=== PATIENT | female | born 2000 | race Caucasian/White ===

== ENCOUNTER 2022-09-09 20:15 | Emergency (ER) | payer SELFPAY ==
[2022-09-09 20:23] VITALS: BP 124/89; PULSE 91; RESP 18; TEMP 36.2; O2SAT 97; BMI 24.2
--- NOTE | 2022-09-09 20:29 | CRLHL7_ITS ---
For Patients: As a result of the Century Cures Act, medical imaging exams and procedure reports are released immediately into your electronic medical record. You may view this report before your referring provider. If you have questions, please contact your health care provider. Indication: Trauma to top of foot Technique: Two views of the right foot, nonweightbearing Comparison: Right foot radiograph on November 24, 2021 Findings and Impression: No acute fracture. Normal alignment on nonweightbearing view. No soft tissue swelling or radiopaque foreign body. Dictated by Parminder Willson MD @ 09/09/2022 9:26:36 PM (Electronically Signed)
--- NOTE | 2022-09-09 20:51 | ED.GENADULT ---
HPI - General Adult General Chief complaint: Extremity Pain/Injury, Lower Stated complaint: Right foot injury Time Seen by Provider: 09/09/22 20:29 Source: patient Mode of arrival: ambulatory Limitations: no limitations History of Present Illness HPI narrative: 22-year-old female coming in today complaining of foot pain. 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 She is complaining of pain at the base of the big toe on the dorsal surface of the foot. He has been walking over the last 4 days however it is uncomfortable for her. Related Data Allergies Allergy/AdvReac Type Severity Reaction Status Date / Time No Known Drug Allergies Allergy Verified 09/09/22 20:28 Review of Systems Status of ROS: Reports: 10 or more systems reviewed and unremarkable except as noted in History and below Exam Narrative: Exam Narrative: Well-nourished well-developed patient in no acute distress. Alert and oriented. Answers questions appropriately. Mood and affect are appropriate. Thoughts are goal oriented and rational. No tangential or magical thinking noted. Patient speaks in full sentences without needing to catch their breath. HEENT: Normocephalic atraumatic. Pupils are equally round reactive to light. Extraocular muscles are intact. Conjunctivae are moist without any icterus noted. Extremities: Bilateral lower extremities are without edema. Normal DP and PT pulses. Patient has small area of ecchymosis to the toe on the dorsal surface right where it hurts. She has tenderness in that area. Remainder of the foot is entirely normal. Skin: Well perfused. Const: Vital Signs, click to edit/add: Vital Signs - 24 hr 09/09/22 20:23 Temperature 97.2 F L Pulse Rate [Left P ulse Oximeter] 91 Respiratory Rate 18 Blood Pressure [Ri ght Upper Arm] 124/89 Pulse Oximetry 97 Oxygen Delivery Me thod Room Air Course Course Hospital Course: X-ray of the foot was done, read by me, does not show any acute fractures. Vital Signs Vital signs: Initial Vital Signs Temperature 97.2 F L 09/09/22 20:23 Temperature Source Temporal Artery Scan 09/09/22 20:23 Pulse Rate 91 09/09/22 20:23 Pulse Rhythm 09/09/22 20:23 Respiratory Rate 18 09/09/22 20:23 Blood Pressure 124/89 09/09/22 20:23 Blood Pressure Mean 100 09/09/22 20:23 Blood Pressure Position Sitting 09/09/22 20:23 Pulse Oximetry 97 09/09/22 20:23 Oxygen Delivery Method 09/09/22 20:23 Vital Signs Temperature 97.2 F L 09/09/22 20:23 Pulse Rate 91 09/09/22 20:23 Respiratory Rate 18 09/09/22 20:23 Blood Pressure 124/89 09/09/22 20:23 Pulse Oximetry 97 09/09/22 20:23 Oxygen Delivery Method 09/09/22 20:23 Temperature 97.2 F L 09/09/22 20:23 Pulse Rate 91 09/09/22 20:23 Respiratory Rate 18 09/09/22 20:23 Blood Pressure 124/89 09/09/22 20:23 Pulse Oximetry 97 09/09/22 20:23 Oxygen Delivery Method 09/09/22 20:23 Medical Decision Making MDM Narrative Medical decision making narrative: Contusion to right foot. We discussed symptomatic treatment and reasons to return for follow-up. Imaging Data X-ray right foot: Attestation: I have reviewed the pertinent imaging results. My impression: No acute findings Radiologist's impression: Pending at time of dictation. Discharge Plan Discharge Clinical Impression: Contusion of foot, right Patient Disposition: Home, Self-Care Condition: Stable Additional Instructions: Okay to use ibuprofen or Tylenol as needed for discomfort. Use a firm soled shoe for comfort. Follow Up/Referrals: Provider,Not a Local [Primary Care Provider] - Stand Alone Forms: [facility] Info Instructions
== END 2022-09-09 21:26 | disposition home or self-care (01) ==
PROVIDERS: Emergency Provider Family Medicine
DX: S90.31XA Contusion of right foot, initial encounter (principal); W50.0XXA Accidental hit or strike by another person, initial encounter; Y93.66 Activity, soccer
CPT/HCPCS: 73620; 99283; 99284

== ENCOUNTER 2023-01-11 14:43 | Emergency (ER) | payer OTHER, SELFPAY ==
[2023-01-11 14:48] VITALS: BP 128/89; PULSE 121; RESP 16; TEMP 36.6; O2SAT 99; BMI 27.4
--- NOTE | 2023-01-11 15:04 | CRLHL7_ITS ---
For Patients: As a result of the Cures Act, medical imaging exams and procedure reports are released immediately into your electronic medical record. You may view this report before your referring provider. If you have questions, please contact your health care provider. INDICATION: Lateral hand injury trying to open a beer bottle TECHNIQUE: Hand radiograph 3 views right COMPARISON: None FINDINGS: Bone: No acute fractures or aggressive bone lesions are identified. Joint: The carpal and metacarpal-phalangeal joints are unremarkable in appearance. The interphalangeal joints are normal in appearance. Soft tissue: Unremarkable. No radiopaque foreign bodies are seen. IMPRESSION: 1. No acute osseous injuries or abnormalities are noted. Dictated by: Reynaldo Lopez MD @ 01/11/2023 15:25:11 (Electronically Signed)
--- NOTE | 2023-01-11 15:27 | ED_ITS ---
HPI - General Adult General Date Seen: 01/11/23 Chief complaint: Extremity Pain/Injury, Upper Stated complaint: Hand Injury Time Seen by Provider: 01/11/23 14:52 Source: patient Mode of arrival: ambulatory Limitations: no limitations History of Present Illness HPI narrative: Patient is a 22-year-old young woman who yesterday was trying to open a beer bottle by hitting the edge of the cap on a table. She used the lateral side of her hand to pound on the top of the bottle as it was being stubborn. She has since developed pain and swelling over the 5th metacarpal area. Related Data Home Medications Medication Instructions Recorded Confirmed desloratadine 5 mg tablet 5 mg PO DAILY 01/11/23 01/11/23 ferrous sulfate 325 mg (65 mg 325 mg PO DAILY 01/11/23 01/11/23 iron) tablet (iron) Allergies Allergy/AdvReac Type Severity Reaction Status Date / Time No Known Drug Allergies Allergy Verified 01/11/23 14:55 Review of Systems Status of ROS: Reports: 6 or more systems reviewed and unremarkable except as noted in History and below Exam Narrative: Exam Narrative: Vital signs reviewed. In general, an alert, well-appearing young woman. Extremities: Examination of the right hand shows of focal area of swelling at about the mid 5th metacarpal. She has tenderness here. She does have some tenderness with axial loading of the 5th finger, minimal tenderness to palpation of the palmar surface of the hand. Remainder of the hand is atraumatic. Distal CMS normal. Skin: Warm dry well perfused. A little bit of bruising noted over the 5th metacarpal, otherwise no significant bruising, erythema, no abrasions or lacerations. Const: Vital Signs, click to edit/add: Vital Signs - 24 hr 01/11/23 14:48 Temperature 97.8 F Pulse Rate [Right Pulse Oximeter] 121 H Respiratory Rate 16 Blood Pressure [Le ft Upper Arm] 128/89 Pulse Oximetry 99 Oxygen Delivery Me thod Room Air Course Course Hospital Course: She is somewhat tachycardic on check-in, will recheck that. She does not have any symptoms pertaining to tachycardia however. X-rays of the right hand by my review are negative for any evidence of fracture. I think her symptoms are simply related to hematoma in that area. She can use ice, ibuprofen. Anticipate this will improve over the next several days to week. Vital Signs Vital signs: Initial Vital Signs Temperature 97.8 F 01/11/23 14:48 Temperature Source Temporal Artery Scan 01/11/23 14:48 Pulse Rate 121 H 01/11/23 14:48 Respiratory Rate 16 01/11/23 14:48 Blood Pressure 128/89 01/11/23 14:48 Blood Pressure Mean 102 01/11/23 14:48 Blood Pressure Position Sitting 01/11/23 14:48 Pulse Oximetry 99 01/11/23 14:48 Oxygen Delivery Method 01/11/23 14:48 Vital Signs Temperature 97.8 F 01/11/23 14:48 Pulse Rate 121 H 01/11/23 14:48 Respiratory Rate 16 01/11/23 14:48 Blood Pressure 128/89 01/11/23 14:48 Pulse Oximetry 99 01/11/23 14:48 Oxygen Delivery Method 01/11/23 14:48 Temperature 97.8 F 01/11/23 14:48 Pulse Rate 121 H 01/11/23 14:48 Respiratory Rate 16 01/11/23 14:48 Blood Pressure 128/89 01/11/23 14:48 Pulse Oximetry 99 01/11/23 14:48 Oxygen Delivery Method 01/11/23 14:48 Discharge Plan Discharge Clinical Impression: Traumatic hematoma of hand Patient Disposition: Home, Self-Care Condition: Stable Instructions: Contusion in Adults (ED) Additional Instructions: You can use ice on this area, ibuprofen or Tylenol as needed for pain. This will improve over the next several days to week, but it may take a couple of weeks for the bump to completely resolve. Your x-ray today is normal. Prescriptions: No Action desloratadine 5 mg tablet 5 mg PO DAILY ferrous sulfate [iron] 325 mg (65 mg iron) tablet 325 mg PO DAILY Follow Up/Referrals: Provider,Not a Local [Primary Care Provider] - Stand Alone Forms: [employer] Info Instructions
== END 2023-01-11 15:56 | disposition home or self-care (01) ==
PROVIDERS: Emergency Provider Emergency Medicine
DX: S60.221A Contusion of right hand, initial encounter (principal); W22.8XXA Striking against or struck by other objects, initial encounter
CPT/HCPCS: 73130; 99283

== ENCOUNTER 2023-02-13 10:48 | Emergency (ER) | payer OTHER, SELFPAY ==
[2023-02-13 10:55] VITALS: BP 118/80; PULSE 80; RESP 16; O2SAT 97; BMI 23.5
--- NOTE | 2023-02-13 11:49 | ED_ITS ---
HPI - General Adult General Chief complaint: Nausea/Vomiting Stated complaint: Vomiting, suspected alcohol poisoning Time Seen by Provider: 02/13/23 11:13 History of Present Illness HPI narrative: This 23-year-old female comes in reporting vomiting and generalized malaise with aches and pains. She states that she had some alcohol last night about 12 hours prior to arrival here was her last drink. She states she normally tolerates alcohol and did not report drinking any excessive amount. She woke up this morning in wanted to go to classes she is a student in college but began to feel these symptoms. Related Data Home Medications Medication Instructions Recorded Confirmed desloratadine 5 mg tablet 5 mg PO DAILY 01/11/23 01/11/23 ferrous sulfate 325 mg (65 mg 325 mg PO DAILY 01/11/23 01/11/23 iron) tablet (iron) Allergies Allergy/AdvReac Type Severity Reaction Status Date / Time No Known Drug Allergies Allergy Verified 02/13/23 11:01 Review of Systems Status of ROS: Reports: 10 or more systems reviewed and unremarkable except as noted in History and below Narrative: Constitutional: No fevers, no weight gain or loss. Eyes: No discharge. No vision changes. HENT: No congestion, no sore throat, no ear pain. Cardiovascular: No chest pain, no palpitations. Respiratory: No shortness of breath, no wheezes, no cough. Gastrointestinal: Nausea and vomiting. Genitourinary: No dysuria, no hematuria. Musculoskeletal: Normal range of motion. Skin: No rashes, no pruritis. Neurological: No dizziness, weakness, sensory change, speech change. She reports some myoclonic jerks. Endo/Heme/Allergies: No bruising or bleeding. No polydipsia. Pysch: no suicidality, no anxiety, no insomnia. All other systems reviewed and are negative. [facility] Social History service: No Exam Narrative: Exam Narrative: Constitutional: Well-developed, well-nourished. HEENT: Normocephalic, atraumatic. Neck: Normal range of motion. Nontender. Supple. Heart: Regular. No murmurs. Normal rate. Intact distal pulses. Lungs: Clear to auscultation. No chest discomfort. No wheezes, rhonchi, or rales. Abdomen: Normal bowel sounds. Nontender. No rebound tenderness. Genitalia: Deferred. Back: No midline tenderness. Normal range of motion. Extremities: Normal range of motion. No injury. Skin: Intact. No rash. Warm. No erythema or pallor. Neurologic: No altered sensation. No weakness. Alert and oriented. Psychiatric: No suicidality. No anxiety or depression. No insomnia. Nursing notes and vitals signs are reviewed. Const: Vital Signs, click to edit/add: Vital Signs - 24 hr 02/13/23 10:55 Pulse Rate [Left P ulse Oximeter] 80 Respiratory Rate 16 Blood Pressure [Ri ght Upper Arm] 118/80 Pulse Oximetry 97 Oxygen Delivery Me thod Room Air Course Vital Signs Vital signs: Initial Vital Signs Pulse Rate 80 02/13/23 10:55 Pulse Rhythm Regular 02/13/23 10:55 Respiratory Rate 16 02/13/23 10:55 Blood Pressure 118/80 02/13/23 10:55 Blood Pressure Mean 92 02/13/23 10:55 Pulse Oximetry 97 02/13/23 10:55 Oxygen Delivery Method Room Air 02/13/23 10:55 Vital Signs Pulse Rate 80 02/13/23 10:55 Respiratory Rate 16 02/13/23 10:55 Blood Pressure 118/80 02/13/23 10:55 Pulse Oximetry 97 02/13/23 10:55 Oxygen Delivery Method Room Air 02/13/23 10:55 Pulse Rate 80 02/13/23 10:55 Respiratory Rate 16 02/13/23 10:55 Blood Pressure 118/80 02/13/23 10:55 Pulse Oximetry 97 02/13/23 10:55 Oxygen Delivery Method Room Air 02/13/23 10:55 Medical Decision Making [facility] Narrative Medical decision making narrative: This patient comes in with generalized malaise with nausea and vomiting. She did have alcohol last night but states that this was not a particularly unusual amount on occasion for her. An IV was established where she did receive a L of normal saline, Zofran 4 mg, and Ativan 0.5 mg. This brought great relief to her symptoms. Lab results returned with reassuring findings. She is okay to be discharged home. She was able to take liquids orally. Lab Data Labs: Lab Results 02/13/23 Range/Units 12:10 WBC 8.79 (4.50-11.00) K/uL RBC 4.84 (4.00-5.20) m/uL Hgb 12.9 (12.0-16.0) gm/dL Hct 39.6 (33.0-51.0) % MCV 82 (80-100) fL MCH 27 (26-34) pg MCHC 33 (32-36) gm/dL RDW Coeff of Maddie 13.2 (11.5-15.5) % Plt Count 247 (140-440) K/uL Neut % (Auto) 77.5 H (42.0-72.0) % Lymph % (Auto) 18.1 L (20-44) % Coleman % (Auto) 3.5 (0.0-11.0) % Eos % (Auto) 0.6 (0.0-7.0) % Baso % (Auto) 0.2 (0.0-3.0) % Neut # (Auto) 6.80 (1.7-7.0) K/uL Lymph # (Auto) 1.60 (0.90-2.90) K/uL Coleman # (Auto) 0.30 (0.00-0.90) K/UL Eos # (Auto) 0.05 (0.00-0.50) K/uL Baso # (Auto) 0.02 (0.00-0.30) K/uL Sodium 142 (135-149) mmol/L Potassium 4.1 (3.6-5.1) mmol/L Chloride 111 (96-114) mmol/L Carbon Dioxide 23 (20-32) mmol/L BUN 10 (5-24) mg/dL Creatinine 0.6 (0.5-1.5) mg/dL Estimated Creat Clear 138.85 Estimated GFR 131 ml/min Glucose 80 (60-115) mg/dL Calcium 9.1 (8.4-10.6) mg/dL Total Bilirubin 0.7 (0.1-1.5) mg/dL Direct Bilirubin 0.2 (0.0-0.5) mg/dL AST 24 (12-35) U/L ALT 22 (4-35) U/L Alkaline Phosphatase 54 (40-150) U/L Total Protein 8.2 (6.0-8.3) g/dL Albumin 4.7 (3.3-5.0) g/dL Lipase 78 (23-300) U/L Ethyl Alcohol < 0.01 L (0.01-0.03) % Discharge Plan Discharge Clinical Impression: Gastroenteritis Patient Disposition: Home, Self-Care Condition: Improved Additional Instructions: Increase diet as tolerated. Use [id number] medicines as needed and directed. Follow up with MD or return if worsening. Prescriptions: No Action desloratadine 5 mg tablet 5 mg PO DAILY ferrous sulfate [iron] 325 mg (65 mg iron) tablet 325 mg PO DAILY Follow Up/Referrals: Provider,Not a Local [Primary Care Provider] - Stand Alone Forms: [employer] Info Instructions
[2023-02-13] MEDS: LORazepam 2 MG/ML inj 0.5 MG IV (12:16)
[2023-02-13] MEDS: ONDANSETRON 2 MG/ML inj 4 MG IVP (12:16)
[2023-02-13] MEDS: 0.9 % SODIUM CHLORIDE 1000 ml 1,000 ML IV (12:16)
[2023-02-13 12:27] LABS: Albumin* 4.7 g/dL (3.3-5.0); Chloride* 111 mmol/L (96-114)
[2023-02-13 12:28] LABS: Potassium* 4.1 mmol/L (3.6-5.1); Sodium* 142 mmol/L (135-149)
[2023-02-13 12:30] LABS: Alkaline Phosphatase* 54 U/L (40-150); Aspartate Amino Transferase* 24 U/L (12-35); Bilirubin Direct* 0.2 mg/dL (0.0-0.5); Bilirubin Total* 0.7 mg/dL (0.1-1.5); Blood Urea Nitrogen* 10 mg/dL (5-24); Carbon Dioxide* 23 mmol/L (20-32); Creatinine* 0.6 mg/dL (0.5-1.5); Est. Creatinine Clearance* 138.85; Estimated Glomerular Filt Rate 131 ml/min; Total Protein* 8.2 g/dL (6.0-8.3)
[2023-02-13 12:31] LABS: Alanine Aminotransferase* 22 U/L (4-35); Calcium* 9.1 mg/dL (8.4-10.6); Glucose* 80 mg/dL (60-115); Lipase* 78 U/L (23-300)
[2023-02-13 12:32] LABS: Basophils Absolute Auto 0.02 K/uL (0.00-0.30); Basophils Percent Auto 0.2 % (0.0-3.0); Eosinophils Absolute Auto 0.05 K/uL (0.00-0.50); Eosinophils Percent Auto 0.6 % (0.0-7.0); Ethanol* < 0.01 % (0.01-0.03); Hematocrit 39.6 % (33.0-51.0); Hemoglobin* 12.9 gm/dL (12.0-16.0); Immature Granulocytes Abs Auto 0.01 K/uL (0.00-0.30); Immature Granulocytes Pct Auto 0.1 %; Lymphocytes Percent Auto 18.1 % (20-44); Mean Corpuscular HGB Conc 33 gm/dL (32-36); Mean Corpuscular Hemoglobin 27 pg (26-34); Mean Corpuscular Volume 82 fL (80-100); Monocytes Percent Auto 3.5 % (0.0-11.0); Neutrophils Percent Auto 77.5 % (42.0-72.0); Platelet Count* 247 K/uL (140-440); RDW Coefficient of Variation % 13.2 % (11.5-15.5); Red Blood Count 4.84 m/uL (4.00-5.20); White Blood Count* 8.79 K/uL (4.50-11.00)
[2023-02-13 12:34] LABS: Slide Review Reflex No
== END 2023-02-13 13:34 | disposition home or self-care (01) ==
PROVIDERS: Emergency Provider Emergency Medicine Emergency Medical Services
DX: K52.9 Noninfective gastroenteritis and colitis, unspecified (principal)
CPT/HCPCS: 36415; 80048; 80076; 82077; 83690; 85025; 96374; 96375; 99283; 99284; J2060; J2405; J7030

== ENCOUNTER 2024-11-20 12:47 | Emergency (ER) | payer OTHER, SELFPAY ==
[2024-11-20 12:50] VITALS: BP 133/82; PULSE 81; RESP 16; TEMP 36.2; O2SAT 97; BMI 29.6
--- NOTE | 2024-11-20 13:50 | ED.SKABFB ---
HPI - Skin/Abscess/Foreign Bdy General Date Seen: 11/20/24 Chief complaint: Skin/Abscess/Foreign Body Stated complaint: thorn cut-swollen and painful Time Seen by Provider: 11/20/24 13:35 Source: patient Mode of arrival: ambulatory Limitations: no limitations History of Present Illness HPI narrative: Patient is a 24-year-old female with no pertinent medical problems presenting to emergency department for concerns of infection to her right index finger. She states a couple days ago she brushed up against a thorn and then recently has noticed that the end of her right index finger is becoming red, swollen, painful. There is also a small pustule on the medial aspect of the distal right finger. States she is able to move the finger without issue. Has no pain to lower portion of the finger. Denies fevers, chills. No other concerns noted Related Data Home Medications ?Medication ?Instructions ?Recorded ?Confirmed desloratadine 5 mg tablet 5 mg PO DAILY 01/11/23 11/20/24 ferrous sulfate 325 mg (65 mg 325 mg PO DAILY 01/11/23 11/20/24 iron) tablet (iron) Previous Rx's ?Medication ?Instructions ?Recorded cephalexin 500 mg capsule 500 mg PO QID #20 caps 11/20/24 Allergies Allergy/AdvReac Type Severity Reaction Status Date / Time latex Allergy Mild rash Verified 11/20/24 12:57 fruit with seed Allergy Intermediate Anaphylaxis Uncoded 11/20/24 12:57 apples Allergy Mild Anaphylaxis Uncoded 11/20/24 12:57 Review of Systems Narrative: Pertinent systems reviewed and were negative unless stated in HPI PFSH PFSH Social History Smoking Status: Never smoker Do you use any of these nicotine containing products: None How often do you have a drink containing alcohol: never AUDIT-C Alcohol total score: 0 Non-prescribed substance use: denies use service: No Exam Narrative: Exam Narrative: Const: Well-nourished, Well-developed, in no distress Eyes: PERRL, no conjunctival injection, and symmetrical lids HENT: Atraumatic external nose and ears. Moist mucous membranes. Removed MSK:Extremities w/o deformity, Normal Active ROM Skin: Mild erythema and tenderness noted to right distal index finger just distal to the D IP. There is no tenderness noted to the tip of her finger. There is a small pustule on the medial aspect similar to where the pain is. Neuro: Normal Muscle tone, No focal neurological deficits. Psych: Awake, Alert, & Oriented x3. Appropriate mood and affect. Const: Vital Signs, click to edit/add: Vital Signs - 24 hr 11/20/24 12:50 Temperature 97.2 F L Pulse Rate [Pulse Oximeter] 81 Respiratory Rate 16 Blood Pressure [Ri ght Upper Arm] 133/82 Pulse Oximetry 97 Oxygen Delivery Me thod Room Air Course Vital Signs Vital signs: Initial Vital Signs Temperature 97.2 F L 11/20/24 12:50 Temperature Source Temporal Artery Scan 11/20/24 12:50 Pulse Rate 81 11/20/24 12:50 Respiratory Rate 16 11/20/24 12:50 Blood Pressure 133/82 11/20/24 12:50 Blood Pressure Mean 99 11/20/24 12:50 Blood Pressure Position Sitting 11/20/24 12:50 Pulse Oximetry 97 11/20/24 12:50 Oxygen Delivery Method Room Air 11/20/24 12:50 Vital Signs Temperature 97.2 F L 11/20/24 12:50 Pulse Rate 81 11/20/24 12:50 Respiratory Rate 16 11/20/24 12:50 Blood Pressure 133/82 11/20/24 12:50 Pulse Oximetry 97 11/20/24 12:50 Oxygen Delivery Method Room Air 11/20/24 12:50 Temperature 97.2 F L 11/20/24 12:50 Pulse Rate 81 11/20/24 12:50 Respiratory Rate 16 11/20/24 12:50 Blood Pressure 133/82 11/20/24 12:50 Pulse Oximetry 97 11/20/24 12:50 Oxygen Delivery Method Room Air 11/20/24 12:50 MDM - Skin/Abscess/Foreign Bdy MDM Narrative Medical decision making narrative: Patient is a 24-year-old female presenting for concern of infection to her finger. At this time do not see signs of flexor tenosynovitis. I did do an ultrasound and see no signs of a felon. No clear signs of sporotrichosis. I do not see any retained foreign body. At this point I believe she is safe for discharge on antibiotics. She is agreeable to this plan. I did give her return precautions. She states she understands. Discharge Plan Discharge Clinical Impression: Cellulitis of finger Qualifiers: Laterality: right Qualified Code(s): L03.011 - Cellulitis of right finger Patient Disposition: Home, Self-Care Condition: Stable Instructions: Cellulitis (ED) Additional Instructions: Take antibiotics as directed. If you start noticing more samples developing down your finger this could be a sign of a fungal infection and will require different treatment. If you develop any of the following signs called Kanavel's Signs it could be a sign of flexor tenosynovitis and is an emergency that you need to return to emergency department immediately for -Pain with passive extension (often the first sign seen) -Percussion tenderness (tenderness over entire length of flexor tendon sheath) -Uniform swelling (symmetric finger swelling along length of the tendon sheath) -Flexion posture (flexed posture of involved digit at rest to minimize pain) Prescriptions: New cephalexin 500 mg capsule 500 mg PO QID Qty: 20 0RF No Action desloratadine 5 mg tablet 5 mg PO DAILY ferrous sulfate [iron] 325 mg (65 mg iron) tablet 325 mg PO DAILY Follow Up/Referrals: Provider,Not a Local [Primary Care Provider] - Stand Alone Forms: [email or web address] Info Instructions
== END 2024-11-20 14:06 | disposition home or self-care (01) ==
LOC: ED 14:00
PROVIDERS: Emergency Provider Student in an Organized Health Care Education/Training Program
DX: L03.011 Cellulitis of right finger (principal)
CPT/HCPCS: 99283

== ENCOUNTER 2025-02-24 14:27 | Emergency (ER) | payer OTHER, SELFPAY ==
[2025-02-24 14:46] VITALS: BP 125/85; PULSE 80; RESP 16; TEMP 36.6; O2SAT 98; BMI 31.4
--- NOTE | 2025-02-24 14:57 | ED_ITS ---
HPI - General Adult General Chief complaint: Extremity Pain/Injury, Lower Stated complaint: Possible broken RT Schin Time Seen by Provider: 02/24/25 14:46 History of Present Illness HPI narrative: Patient was kicked during soccer practice 02/13. She had pain and discomfort but continued to play. After hitting right morton with balls and during play, patient experienced more pain and swelling. She was encouraged to come in for x-rays from her doctor in [place]. She is wearing an orthotic boot upon entry to ED. - Symptoms Date/Time Unknown Yes 25-year-old woman presenting to the emergency department with concern of right morton pain. Apparently has been getting kicked there during soccer most notably in event on the about 12 days ago. 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. She had pain and has continued to play. Continuing to strike balls with her right morton. Has been more painful in swollen. Does not sound as though ambulating with significant difficulty. Had been placed in walking boot; looks like low version. I mentioned that location of this boot is likely exacerbating her symptoms and she says yes. Apparently sounds like has ignored problems in the past and says that father does not trust her in this regard in is recommended to be evaluated prior to further play. Also apparently he has seen I believe [employer] in the ambulating on subtle fractures. Also has not reliably been wearing her morton guards Related Data Home Medications ?Medication ?Instructions ?Recorded ?Confirmed desloratadine 5 mg tablet 5 mg PO DAILY 01/11/23 11/20/24 ferrous sulfate 325 mg (65 mg 325 mg PO DAILY 01/11/23 11/20/24 iron) tablet (iron) Previous Rx's ?Medication ?Instructions ?Recorded cephalexin 500 mg capsule 500 mg PO QID #20 caps 11/20/24 Allergies Allergy/AdvReac Type Severity Reaction Status Date / Time latex Allergy Mild rash Verified 02/24/25 14:46 fruit with seed Allergy Intermediate Anaphylaxis Uncoded 11/20/24 12:57 apples Allergy Mild Anaphylaxis Uncoded 11/20/24 12:57 Review of Systems Status of ROS: Reports: 6 or more systems reviewed and unremarkable except as noted in History and below PFSH PFS Social History Smoking Status: Current some day smoker Do you use any of these nicotine containing products: None How often do you have a drink containing alcohol: 2-3 times a week How often do you have six or more drinks on one occasion: Never AUDIT-C Alcohol total score: 3 Non-prescribed substance use: denies use service: No Exam Narrative: Exam Narrative: Pleasant. NAD. Skin is warm and dry. Breathing easily. She is well-perfused peripherally. Examination of right lower leg does show bruising in the distal 3rd morton. Does not have marked swelling. Sore to dorsiflexion of the ankle but with good strength. Does not have pain to stress of the tib fib; primarily just to palpation directly of the bruised areas. Const: Vital Signs, click to edit/add: Vital Signs - 24 hr 02/24/25 14:46 Temperature 98 F Pulse Rate [Pulse Oximeter] 80 Respiratory Rate 16 Blood Pressure [Ri ght Upper Arm] 125/85 Pulse Oximetry 98 Oxygen Delivery Me thod Room Air Documenting provider has reviewed patient's vital signs: yes Course Vital Signs Vital signs: Initial Vital Signs Temperature 98 F 02/24/25 14:46 Temperature Source Temporal Artery Scan 02/24/25 14:46 Pulse Rate 80 02/24/25 14:46 Respiratory Rate 16 02/24/25 14:46 Blood Pressure 125/85 02/24/25 14:46 Blood Pressure Mean 98 02/24/25 14:46 Pulse Oximetry 98 02/24/25 14:46 Oxygen Delivery Method Room Air 02/24/25 14:46 Vital Signs Temperature 98 F 02/24/25 14:46 Pulse Rate 80 02/24/25 14:46 Respiratory Rate 16 02/24/25 14:46 Blood Pressure 125/85 02/24/25 14:46 Pulse Oximetry 98 02/24/25 14:46 Oxygen Delivery Method Room Air 02/24/25 14:46 Temperature 98 F 02/24/25 14:46 Pulse Rate 80 02/24/25 14:46 Respiratory Rate 16 02/24/25 14:46 Blood Pressure 125/85 02/24/25 14:46 Pulse Oximetry 98 02/24/25 14:46 Oxygen Delivery Method Room Air 02/24/25 14:46 Medical Decision Making MDM Narrative Medical decision making narrative: I do think this is primarily repeated bruising, maybe some periosteal reaction/bruising. As she does play soccer competitively perhaps he would be prudent x-ray tib-fib. There is not appear to be any pain to palpation about the ankle. The walking boot is most likely aggravating her pain and bruising. X-rays of the right tib-fib independently reviewed by me looks to be absent of any bony abnormality Radiology over-read later concurs Discussed absence of findings with Fauzia See patient discharge plan for further discussion Take this James wrap with you. Get yourself one of those ice bags as discussed. Fill with ice and water and ice a couple of times daily over the next few days. Also...wear your morton guards1 :) By getting this traumatized over and over, you are delaying healing. Absent further trauma, if in another week you are simply no better, please be re-evaluated. I will call you if Radiology sees anything more worthy of comment in your imaging Discharge Plan Discharge Clinical Impression: Contusion Patient Disposition: Home, Self-Care Condition: Stable Additional Instructions: Take this James wrap with you. Get yourself one of those ice bags as discussed. Fill with ice and water and ice a couple of times daily over the next few days. Also...wear your morton guards1 :) By getting this traumatized over and over, you are delaying healing. Absent further trauma, if in another week you are simply no better, please be re-evaluated. I will call you if Radiology sees anything more worthy of comment in your imaging Prescriptions: No Action desloratadine 5 mg tablet 5 mg PO DAILY ferrous sulfate [iron] 325 mg (65 mg iron) tablet 325 mg PO DAILY cephalexin 500 mg capsule 500 mg PO QID Qty: 20 0RF Follow Up/Referrals: Provider,Not a Local [Primary Care Provider] - Stand Alone Forms: [facility] Info Instructions
--- NOTE | 2025-02-24 15:01 | CRLHL7_ITS ---
For Patients: As a result of the Cures Act, medical imaging exams and procedure reports are released immediately into your electronic medical record. You may view this report before your referring provider. If you have questions, please contact your health care provider. Indication: Lower anterior morton pain.. Technique: Right tibia and fibula, 2 views. Comparison: None. Findings: Bones: Alignment is normal. No fractures or bone lesions. Joint spaces: Unremarkable. Soft tissues: Unremarkable. Impression: No sign of acute injury. Dictated by Fazal Grewal MD @ 02/24/2025 4:34:15 PM (Electronically Signed)
== END 2025-02-24 15:59 | disposition home or self-care (01) ==
PROVIDERS: Emergency Provider Family Medicine
DX: S80.11XA Contusion of right lower leg, initial encounter (principal); W50.1XXA Accidental kick by another person, initial encounter; Y93.66 Activity, soccer
CPT/HCPCS: 73590; 99283; 99284

== ENCOUNTER 2025-03-18 14:54 | Emergency (ER) | payer OTHER, SELFPAY ==
[2025-03-18 15:14] VITALS: BP 115/83; PULSE 95; RESP 20; TEMP 36.7; O2SAT 96; BMI 29.9
--- NOTE | 2025-03-18 15:35 | ED.GENADULT ---
HPI - General Adult General Chief complaint: Rib Pain Stated complaint: rib pain Time Seen by Provider: 03/18/25 15:07 History of Present Illness HPI narrative: patient fell on the left side of the ribs and already had an issue with ribs before the game. patient was pushing on someone, and other person went away, and patient fell to the ground causing pain to rib area. has an ice bag to area of injury. hurts to breath. 25-year-old young woman presenting to the emergency department with intense left-sided rib pain. Had been having some pain here prior to a soccer game. Was leaning into someone and that support moved with Camacho ultimately falling to the ground causing much more pain into this left low chest area. Pain is pleuritic and worse with movement or palpation. Has been icing. Unclear diagnosis prior to this most recent injury. Related Data Home Medications ?Medication ?Instructions ?Recorded ?Confirmed desloratadine 5 mg tablet 5 mg PO DAILY 01/11/23 11/20/24 aerius PO DAILY 03/18/25 ventroline inhalation QID PRN 03/18/25 Allergies Allergy/AdvReac Type Severity Reaction Status Date / Time latex Allergy Mild rash Verified 02/24/25 14:46 fruit with seed Allergy Intermediate Anaphylaxis Uncoded 11/20/24 12:57 apples Allergy Mild Anaphylaxis Uncoded 11/20/24 12:57 Review of Systems Status of ROS: Reports: 6 or more systems reviewed and unremarkable except as noted in History and below [facility] Social History Smoking Status: Former smoker Do you use any of these nicotine containing products: None How often do you have a drink containing alcohol: 2-3 times a week How often do you have six or more drinks on one occasion: Never AUDIT-C Alcohol total score: 3 Non-prescribed substance use: denies use service: No Exam Narrative: Exam Narrative: Pleasant. Tearful. Slightly splinted breathing. Head is atraumatic. Neck is supple. Back nontender. She is with the out supraclavicular crepitus. Moving all extremities without difficulty although manipulation of the right arm seems to elicit a little more discomfort into the left chest area. Abdomen is soft and nontender. Really seems to be the left lower ribs where she is having the most pain. I do not appreciate deformity. Not exactly positive to oppositional compression testing. Not with discrete flank pain. Skin without evidence of injury. Is wearing her morton guards today. Const: Vital Signs, click to edit/add: Vital Signs - 24 hr 03/18/25 15:14 Temperature 98.0 F Pulse Rate [Pulse Oximeter] 95 Respiratory Rate 20 Blood Pressure [Ri ght Upper Arm] 115/83 Pulse Oximetry 96 Oxygen Delivery Me thod Room Air Documenting provider has reviewed patient's vital signs: yes Course Vital Signs Vital signs: Initial Vital Signs Temperature 98.0 F 03/18/25 15:14 Temperature Source Temporal Artery Scan 03/18/25 15:14 Pulse Rate 95 03/18/25 15:14 Respiratory Rate 20 03/18/25 15:14 Blood Pressure 115/83 03/18/25 15:14 Blood Pressure Mean 93 03/18/25 15:14 Blood Pressure Position Sitting 03/18/25 15:14 Pulse Oximetry 96 03/18/25 15:14 Oxygen Delivery Method Room Air 03/18/25 15:14 Vital Signs Temperature 98.0 F 03/18/25 15:14 Pulse Rate 95 03/18/25 15:14 Respiratory Rate 20 03/18/25 15:14 Blood Pressure 115/83 03/18/25 15:14 Pulse Oximetry 96 03/18/25 15:14 Oxygen Delivery Method Room Air 03/18/25 15:14 Temperature 98.0 F 03/18/25 15:14 Pulse Rate 95 03/18/25 15:14 Respiratory Rate 20 03/18/25 15:14 Blood Pressure 115/83 03/18/25 15:14 Pulse Oximetry 96 03/18/25 15:14 Oxygen Delivery Method Room Air 03/18/25 15:14 Medications Administered Medications: Discontinued Medications Generic Name Dose Route Start Last Admin Trade Name Freq PRN Reason Stop Dose Admin Ibuprofen 800 mg 03/18/25 15:38 03/18/25 16:00 Ibuprofen 400 Mg Tablet PO 03/18/25 15:39 800 mg ONCE ONE Administration Lidocaine 1 patch 03/18/25 15:38 03/18/25 16:00 Lidocaine 5% Patch TRANSDERMA 03/18/25 15:39 1 patch ONCE ONE Administration Protocol Medical Decision Making MDM Narrative Medical decision making narrative: Certainly might have sustained a rib fracture. I favor more contusion. Pending results of imaging would do further evaluation. X-rays of left ribs and chest independently reviewed by me. Bb is noted the site of pain. I do not appreciate fracture here. No shadowing to suggest other bleeding. Radiology over-read concurs INDICATION: Fall playing soccer onto left side. Significant pain. TECHNIQUE: Chest one view. Left ribs 2 views. FINDINGS: There is no pulmonary contusion or pneumothorax. The heart is normal in size. The lungs are clear. The pulmonary vasculature is normal. Left rib detail views are negative for fractures or other osseous abnormalities. IMPRESSION: Negative study. Dictated by Ezequiel Hernandez MD @ 03/18/2025 4:06:43 PM With absence of displaced rib fracture I think less likely to have injured spleen or certainly to have any retroperitoneal injury. Was given ibuprofen and lidocaine in the emergency department. Perhaps mild improvement in pain. I also placed an James wrap. This maybe helps a little bit too but the compression is also uncomfortable. There may have been some underlying pleuritis or rib strain or maybe even costochondritis. Appears to have been exacerbated with this fall. See patient discharge plan for further discussion If you think that this lidocaine patch is helpful, you can purchase more [id number]. Would still at least consider icing couple of times daily over the next few days. Considering what you were saying about the preceding discomfort, consider taking 400-600 mg of ibuprofen 3 times daily over the next 5 days maybe with a little food. Alternatively 375 mg naproxen 2 times daily. Can mix either of these to with up to 1000 mg of acetaminophen per dose. You seem to have been describing some pleuritis preceding this injury. Be seen for persistent and increasing shortness of breath, uncontrolled pain. If the James wrap is helpful, can wear this for comfort over this next week. Take a few deep breaths a couple of times daily on the days you are wearing the James wrap. Medical Records Medical records reviewed: Yes I reviewed the patient's medical records Discharge Plan Discharge Clinical Impression: Contusion of ribs Patient Disposition: Home, Self-Care Condition: Stable Additional Instructions: If you think that this lidocaine patch is helpful, you can purchase more [id number]. Would still at least consider icing couple of times daily over the next few days. Considering what you were saying about the preceding discomfort, consider taking 400-600 mg of ibuprofen 3 times daily over the next 5 days maybe with a little food. Alternatively 375 mg naproxen 2 times daily. Can mix either of these to with up to 1000 mg of acetaminophen per dose. You seem to have been describing some pleuritis preceding this injury. Be seen for persistent and increasing shortness of breath, uncontrolled pain. If the James wrap is helpful, can wear this for comfort over this next week. Take a few deep breaths a couple of times daily on the days you are wearing the James wrap. Prescriptions: No Action aerius PO DAILY Patient Comments: allergie medication ventroline inhalation QID PRN Patient Comments: 1-2 MDI QID for asthma desloratadine 5 mg tablet 5 mg PO DAILY Follow Up/Referrals: Provider,Not a Local [Primary Care Provider] - Stand Alone Forms: [employer] Info Instructions
--- NOTE | 2025-03-18 15:38 | CRLHL7_ITS ---
For Patients: As a result of the Century Cures Act, medical imaging exams and procedure reports are released immediately into your electronic medical record. You may view this report before your referring provider. If you have questions, please contact your health care provider. INDICATION: Fall playing soccer onto left side. Significant pain. TECHNIQUE: Chest one view. Left ribs 2 views. FINDINGS: There is no pulmonary contusion or pneumothorax. The heart is normal in size. The lungs are clear. The pulmonary vasculature is normal. Left rib detail views are negative for fractures or other osseous abnormalities. IMPRESSION: Negative study. Dictated by Ezequiel Hernandez MD @ 03/18/2025 4:06:43 PM (Electronically Signed)
[2025-03-18] MEDS: LIDOCAINE 5% PATCH 1 PATCH TRANSDERMA (16:00)
[2025-03-18] MEDS: IBUPROFEN 400 MG TABLET 800 MG PO (16:00)
== END 2025-03-18 16:33 | disposition home or self-care (01) ==
PROVIDERS: Emergency Provider Family Medicine
DX: S20.212A Contusion of left front wall of thorax, initial encounter (principal); W18.39XA Other fall on same level, initial encounter
CPT/HCPCS: 71101; 99283; 99284; A9270